=== PATIENT | female | born 1990 | race Caucasian/White ===

== ENCOUNTER 2018-05-05 15:02 | Emergency (ER) | payer OTHER ==
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
[2018-05-05] MEDS ORDERED: DIPHTH/TETANUS/ACEL. PERTUSSIS IM ONLY ONE (15:45)
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
[2018-05-05 16:30] VITALS: BP 121/70
[2018-05-05] MEDS ORDERED: DICL-195 PO (16:34)
== END 2018-05-05 16:45 | disposition home or self-care (01) ==
LOC: ER 15:11
DX: S06.0X0A Concussion without loss of consciousness, initial encounter (principal); V49.88XA Car occupant (driver) (passenger) injured in other specified transport accidents, initial encounter
CPT/HCPCS: 36415; 70450; 84703; 90471; 90715; 99284